=== PATIENT | male | born 1995 | race Caucasian/White ===

== ENCOUNTER → 2016-12-17 12:03 | Outpatient (CLI) | payer OTHER | END | disposition home or self-care (01) | LOC: D.MRI 12:03 → D.CN 13:00 → D.MRI 14:00 | DX: G40.101 Localization-related (focal) (partial) symptomatic epilepsy and epileptic syndromes with simple partial seizures, not intractable, with status epilepticus (principal) ==

== ENCOUNTER → 2016-12-31 09:51 | Outpatient (CLI) | payer MEDICAID ==
--- NOTE | 2017-01-08 08:45 | EEG ---
PATIENT:JAYDA BOOKER DATE OF SERVICE: 12/31/16 MEDICAL RECORD: [id number] DATE OF : [birth year] LOCATION: [facility] ADMISSION DATE: 12/31/16 REFERRING PHYSICIAN: INTERPRETING PHYSICIAN: TERA SCHWARTZ MD DATE OF SERVICE: 12/31/2016 Referred by myself as an outpatient. ELECTROENCEPHALOGRAM NUMBER: [id number] DATE OF EXAMINATION 12/31/19 at 10:45 a.m. TECHNICAL DATA: This electroencephalographic recording consists of approximately 20 minutes of data collection utilizing the international 10/20 system of electrode placement and both referential and non-referential montages. Sixteen channels of electrocerebral recording are accompanied by a 17th channel dedicated to the electrocardiographic rhythm and 2 channels of electromyographic recording. Recording is performed in the awake and drowsy states utilizing activation by hyperventilation and photic stimulation. ELECTROENCEPHALOGRAPHIC DATA: The awake state comprises approximately 80% of the recorded electrocerebral activity. Electromyographic artifact is prominent and rapid eye movements are seen. The posterior dominant background consists of a symmetric, semi-rhythmic, waxing and waning 8-9 Hz alpha activity, which is suppressed by eye opening. The drowsy state comprises only approximately 20% of the recorded electrocerebral activity. Electromyographic artifact is diminished and rapid eye movements are not seen. The posterior dominant background is relatively suppressed. No abnormal nor focal slowing is identified. No epileptiform discharges are seen. Hyperventilation and photic stimulation induced no abnormal change in the recorded electrocerebral activity. INTERPRETATION: Normal (awake and drowsy). This is a normal electroencephalographic recording. TRANSINT:[id number] Voice Confirmation ID: [id number] DOCUMENT ID: [id number] TERA SCHWARTZ MD at 0845 CC: [id number] DICTATION DATE: 01/01/17 0607 [employer] OF [employer] ADOMETRY: 01/01/17 0625 DEP CLI 12/31/16 [place] [id number] [place] [id number]
== END | disposition home or self-care (01) ==
LOC: D.CN 12-26 13:00
DX: G40.101 Localization-related (focal) (partial) symptomatic epilepsy and epileptic syndromes with simple partial seizures, not intractable, with status epilepticus (principal)